=== PATIENT | female | born 1970 | race Caucasian/White ===

== ENCOUNTER 2019-11-08 08:27 | Outpatient (CLI) | payer BC, SELFPAY ==
--- NOTE | ~2019-11-08 | MM_ITS ---
EXAMINATION: MM screening [facility] BI w anayeli HISTORY: Screening TECHNIQUE: Craniocaudal and mediolateral oblique 3-D tomosynthesis images were obtained and synthetic 2-D images were generated. CAD analysis was submitted and interpreted. COMPARISON: Comparison to multiple prior studies sequentially, with oldest reviewed study dated 02/15. BREAST PARENCHYMAL COMPOSITION: The breasts are heterogeneously dense, which may obscure small masses . FINDINGS: There is a new focal asymmetry in the central aspect of the right breast, middle third. The left breast is stable without evidence for malignancy. IMPRESSION: 1. New focal right breast asymmetry. 2. Additional mammographic views and possible breast ultrasound are recommended. BI-RADS Category 0: Incomplete: Needs additional imaging evaluation. Reviewed, dictated and finalized at location A. IMPRESSION: 1. New focal right breast asymmetry. 2. Additional mammographic views and possible breast ultrasound are recommended . BI-RADS Category 0: Incomplete: Needs additional imaging evaluation.
== END 2019-11-08 08:28 | disposition home or self-care (01) ==
LOC: CHSIMG 08:31
PROVIDERS: PCP Internal Medicine; Visit Provider Internal Medicine
DX: Z12.31 Encounter for screening mammogram for malignant neoplasm of breast (principal)
CPT/HCPCS: 77063; 77067

== ENCOUNTER 2019-11-12 08:51 | Outpatient (CLI) | payer BC, SELFPAY ==
--- NOTE | ~2019-11-12 | MMUS_ITS ---
EXAMINATION: MM diagnostic [facility] RT w anayeli, US breast RT complete HISTORY: New focal right breast asymmetry reported in central right breast on 11/08/2019 screening álvaro mogram TECHNIQUE: Additional 3-D tomosynthesis images of the right breast were performed and synthetic 2-D i mages were generated. CAD analysis was submitted and interpreted. High resolution complete right [facility] [facility] ultrasound was performed. COMPARISON: 11/04/2019 bilateral digital screening mammogram BREAST PARENCHYMAL COMPOSITION: The breasts are heterogeneously dense, which may obscure small masses . FINDINGS: MAMMOGRAPHIC FINDINGS: No suspicious mass or architectural distortion, malignant calcification, skin thickening or retractio n is evident. The suggested right breast asymmetry on screening CC view of 11/08/2019 is not confirmed on these supp lemental views. The heterogeneously dense stroma however may obscure underlying masses. Ultrasound examination there fore was performed. ULTRASOUND: 12:00 5 cm from nipple: 4.8 mm cyst 6:00 2 cm from nipple: 2.9 x 4.6 x 6.2 mm circumscribed hypoechoic solid lesion without suspicious sh adowing or internal vascularity, consistent with benign process. 10:00 9 cm from nipple: 6.3 x 17.5 mm circumscribed hypoechoic mass with fatty hilus, likely a lymph node; no suspicious shadowing No suspicious mass or shadowing is detected. IMPRESSION: 1. No mammographic or sonographic evidence of malignancy 2. Routine annual mammographic screening is recommended. BI-RADS Category 2: Benign finding(s). Reviewed, dictated and finalized at location A. IMPRESSION: 1. No mammographic or sonographic evidence of malignancy 2. Routine annual mammographic screening is recommended. BI-RADS Category 2: Benign finding(s).
== END 2019-11-12 08:52 | disposition home or self-care (01) ==
PROVIDERS: PCP Internal Medicine; Visit Provider Internal Medicine
DX: R92.8 Other abnormal and inconclusive findings on diagnostic imaging of breast (principal)
CPT/HCPCS: 76641; 77061; 77065; G0279

== ENCOUNTER 2020-09-30 09:35 | Outpatient (CLI) | payer BC, SELFPAY ==
--- NOTE | ~2020-09-30 | US_ITS ---
EXAMINATION: US pelvic complete w TV DATE: 09/30/2020 13:06 INDICATION: Hypertrophy of the uterus Comparison:No prior studies for comparison. TECHNIQUE: Multiple transabdominal and endovaginal sonographic images of the pelvis performed. FINDINGS: The uterus measures 12.3 x 7.8 x 4.6 cm. The endometrial complex measures 2.4 cm. Endometri um is diffusely heterogeneous. There is uterine fibroid measuring 6.2 x 1.7 x 4.6 cm. The right ovary measures 2.8 x 3.7 x 2.7 cm and the left ovary measures 2 x 1.3 x 1 cm. There are sm all follicles in each ovary. Normal doppler signal in both ovaries. There is no free fluid in the pelvis. There are no abnormal masses seen on either side. IMPRESSION: 1. Enlarged uterus containing 6.2 cm uterine fibroid. 2: Significantly thickened heterogeneous endometrium measuring 2.4 cm. Reviewed, dictated and finalized at location A.
== END 2020-09-30 09:36 | disposition home or self-care (01) ==
PROVIDERS: PCP Internal Medicine; Visit Provider Obstetrics & Gynecology
DX: N85.2 Hypertrophy of uterus (principal)
CPT/HCPCS: 76830; 76856

== ENCOUNTER → 2021-01-30 00:29 | Outpatient (CLI) | payer BC, SELFPAY ==
[2021-01-30 17:04] LABS: SARS-CoV-2 RNA PCR Negative
== END ==
PROVIDERS: PCP Internal Medicine; Visit Provider Internal Medicine Gastroenterology
DX: Z01.812 Encounter for preprocedural laboratory examination (principal); Z20.822 Contact with and (suspected) exposure to COVID-19
CPT/HCPCS: C9803; U0003; U0005

== ENCOUNTER 2021-02-03 02:37 | Day surgery (SDC) | payer BC, SELFPAY ==
[2021-01-15 13:52] VITALS: BMI 36.6
--- NOTE | 2021-02-02 09:36 | WPDANESEPPF ---
Anes - Initial Pre Proc Eval Procedure: Operation Date: 02/03/21 08:00 Proposed Procedures p Esophagogastroduodenoscopy & Screening Colonoscopy - Ronald Craft MD Date/Time: 02/02/21 09:36 Surgeon: Ronald Craft MD Pre Op Diagnosis: epigastric pain, neoplasm screening Patient Data Age: 50 Gender: F Height: 1.65 m Weight: 100 kg Allergies Allergy/AdvReac Type Severity Reaction Status Date / Time No Known Allergies Allergy Unverified 01/15/21 13:51 Home Medications Medication Instructions Recorded Confirmed Type buspirone 30 mg tablet 30 mg PO BID 01/05/21 01/15/21 History levothyroxine 175 mcg capsule 175 mcg PO DAILY 01/05/21 01/15/21 History Patient hx anesthesia problems: none Family hx anesthesia problems: none Results Review: All pre-operative results and documents have been reviewed as part of the pre-operative evaluation. PMFSH Past Medical History Medical History (Updated 02/02/21 @ 15:25 by Ronald Craft MD) Depression GERD (gastroesophageal reflux disease) Hypothyroidism Surgical History Surgical History (Updated 02/02/21 @ 09:36 by Rosalio Li DO) History of cholecystectomy Social History Social History Alcohol intake: current Alcohol use details: Has been 3 months since last drink Living arrangements: with family Spiritual care concerns: No Anes - Eval Final PreProcedure Day of Procedure 02/02/21 09:36 Patient weight: obese Heart: regular rate and rhythm Lungs: clear to auscultation and normal air movement Airway: Mallampati scale class II Neurological: alert and oriented Last oral intake: >/= 8 hours ASA classification: II Emergent: no Anesthetic plan: proceed Anesthesia type and monitoring: general GIVS and standard monitoring Results Review: All pre-operative results and documents have been reviewed as part of the pre-operative evaluation. Informed Consent: The patient's anesthetic plan and its attendant risks and benefits were discussed with the patient/family/POA. Questions were solicited and answers provided to the satisfaction of the patient/family/POA.
--- NOTE | 2021-02-02 15:24 | PM.HPGS ---
History of Present Illness History of Present Illness Consent: Risks, benefits, and alternatives have been discussed and questions answered. Patient agrees to proceed with procedure. Chief complaint: epigastric pain, neoplasm screening Narrative: Jeanette Feliciano is a 50 year old female who has been having severe epigastric and subxiphoid pain. Often it is worse after eating, particularly when she eats beef. She had tried pantoprazole but had not had a great deal of relief with that. Her gallbladder has been removed. She is also here for colon cancer screening Review of Systems Review of Systems: All systems reviewed & are unremarkable except as noted in HPI and below PMFSH Past Medical History Medical History Depression GERD (gastroesophageal reflux disease) Hypothyroidism Surgical History Surgical History History of cholecystectomy Social History Social History Alcohol intake: current Alcohol use details: Has been 3 months since last drink Living arrangements: with family Spiritual care concerns: No Meds Home Medications and Allergies Home Medications Medication Instructions Recorded Confirmed Type buspirone 30 mg tablet 30 mg PO BID 01/05/21 01/15/21 History levothyroxine 175 mcg capsule 175 mcg PO DAILY 01/05/21 01/15/21 History Allergies Allergy/AdvReac Type Severity Reaction Status Date / Time No Known Allergies Allergy Unverified 01/15/21 13:51 Exam Resp: Auscultation: clear to auscultation bilaterally Cardio: Rate: regular rate Rhythm: regular rhythm GI: GI Palp: Yes Soft to palpation and No Tenderness to palpation present (GI) Assessment and Plan Assessment and plan (1) Epigastric pain: Code(s): R10.13 - Epigastric pain Status: Acute Assessment and Plan: EGD with possible biopsy or dilatation or cautery. (2) Encounter for screening colonoscopy: Code(s): Z12.11 - Encounter for screening for malignant neoplasm of colon Status: Acute Assessment and Plan: Colonoscopy with possible biopsy or polypectomy or cautery or injection of substances.
[2021-02-03 06:48] VITALS: BP 128/73; PULSE 82; RESP 18; TEMP 36.5; O2SAT 100
[2021-02-03] MEDS: LACTATED RINGERS 1,000 ML 150 ML IV CONT (07:00)
--- NOTE | 2021-02-03 08:26 | SUR.OPER ---
EGD START 801, END 806 COLONOSCOPY START 812, END 822
[2021-02-03 08:27] VITALS: BP 108/69; PULSE 67; RESP 21; O2SAT 98
[2021-02-03 08:37] VITALS: BP 125/74; PULSE 58; RESP 21; O2SAT 100
[2021-02-03 08:47] VITALS: BP 141/91; PULSE 83; RESP 17; O2SAT 100
== END 2021-02-03 08:59 | disposition home or self-care (01) ==
PROVIDERS: PCP Internal Medicine; Visit Provider Internal Medicine Gastroenterology
PROC: 0DJ08ZZ Inspection of Upper Intestinal Tract, Via Natural or Artificial Opening Endoscopic (ICD-10-PCS; CPT 43235; principal; 2021-02-03 08:00)
DX: Z12.11 Encounter for screening for malignant neoplasm of colon (principal); K21.9 Gastro-esophageal reflux disease without esophagitis; E03.9 Hypothyroidism, unspecified; F32.9 Major depressive disorder, single episode, unspecified; E66.9 Obesity, unspecified; Z68.36 Body mass index [BMI] 36.0-36.9, adult
CPT/HCPCS: 45378; 43239; 87081; 88305; J2704; J7120

== ENCOUNTER 2021-04-07 08:51 | Outpatient (CLI) | payer BC, SELFPAY ==
--- NOTE | ~2021-04-07 | MM_ITS ---
EXAMINATION: MM screening [facility] BI w anayeli HISTORY: Screening mammogram TECHNIQUE: Craniocaudal and mediolateral oblique 3-D tomosynthesis images were obtained and synthetic 2-D images were generated. CAD analysis was submitted and interpreted. COMPARISON: 11/12/2019, 11/08/2019, 01/26/2017 BREAST PARENCHYMAL COMPOSITION: The breasts are heterogeneously dense, which may obscure small masses . FINDINGS: There is no evidence of suspicious mass, calcification, or architectural distortion to sugg est malignancy in either breast. There has been no suspicious interval change. IMPRESSION: 1. No mammographic evidence of malignancy. 2. Recommend routine screening mammography in one year. BI-RADS Category 1: Negative Reviewed, dictated and finalized at location A. 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
== END 2021-04-07 08:52 | disposition home or self-care (01) ==
LOC: CHSIMG 08:52
PROVIDERS: PCP Internal Medicine; Visit Provider Internal Medicine
DX: Z12.31 Encounter for screening mammogram for malignant neoplasm of breast (principal)
CPT/HCPCS: 77063; 77067

== ENCOUNTER 2021-04-22 09:58 | Outpatient (CLI) | payer BC, SELFPAY ==
[2021-04-22 11:24] LABS: SARS-CoV-2 Ag Positive (Negative)
== END 2021-04-22 09:59 | disposition home or self-care (01) ==
LOC: CHSLAB 09:59
PROVIDERS: PCP Internal Medicine; Visit Provider Internal Medicine
DX: U07.1 COVID-19 (principal); J06.9 Acute upper respiratory infection, unspecified
CPT/HCPCS: 87426; C9803

== ENCOUNTER 2021-08-14 10:38 | Outpatient (CLI) | payer BC, SELFPAY ==
--- NOTE | ~2021-08-14 | MR_ITS ---
EXAMINATION: MR lumbar spine wo con DATE: 08/14/2021 11:41 INDICATION: LEFT RADICULAPTHY WITH NEUROLOGIC DEFICIT . TECHNIQUE: Magnetic resonance imaging (MRI) of the lumbar spine was performed without intravenous con trast. Sequences included sagittal T2-weighted FSE, sagittal T2-weighted FS FSE, sagittal T1-weighted FSE, and axial T2-weighted FSE. COMPARISON: 03/07/2017 FINDINGS: The last fully formed and hydrated disc is designated L5-S1. The marrow signal is benign an d homogenous. Conus terminates at T12. Multilevel disc space narrowing and disc dehydration. The foll owing disc levels are specifically discussed: T11-T12: The disc does not extend beyond the endplate margin. There is no facet joint osteoarthritis. There is no neural foraminal stenosis. There is no central canal stenosis. T12-L1: Mild diffuse bulge. There is no facet joint osteoarthritis. There is no neural foraminal sten osis. There is no central canal stenosis. L1-L2: Mild diffuse bulge. There is mild facet joint osteoarthritis. There is no neural foraminal fermín nosis. There is no central canal stenosis. L2-L3: Mild diffuse bulge. There is moderate facet joint osteoarthritis. There is no neural foraminal stenosis. There is no central canal stenosis. L3-L4: Moderate diffuse bulge. Small annular rent in the posterior disc. There is moderate facet join t osteoarthritis. There is no neural foraminal stenosis. There is no central canal stenosis. L4-L5: Moderate diffuse bulge. There is moderate facet joint osteoarthritis. There is mild bilateral inferior neural foraminal stenosis. There is no central canal stenosis. L5-S1: 4 mm left paracentral protrusion superimposed on a moderate diffuse bulge appears to displace the traversing left S1 and S2 nerve roots. There is moderate facet joint osteoarthritis. There is no neural foraminal stenosis. There is no central canal stenosis. IMPRESSION: 1. Left paracentral disc protrusion at L5-S1 displaces the left S1 and S2 nerve roots. 2. Annular rent in the L3-4 disc. 3. Mild inferior lateral neural foraminal narrowing at L4-5. 4. Multilevel facet arthropathy. Reviewed, dictated and finalized at location K.
== END 2021-08-14 10:39 | disposition home or self-care (01) ==
LOC: CHSIMG 10:39
PROVIDERS: PCP Internal Medicine; Visit Provider Internal Medicine
DX: M54.17 Radiculopathy, lumbosacral region (principal)
CPT/HCPCS: 72148

== ENCOUNTER 2021-08-22 18:44 | Observation (INO) | payer BC, SELFPAY ==
--- NOTE | ~2021-08-22 | CT_ITS ---
EXAMINATION: CT lumbar spine wo con DATE: 08/23/2021 08:22 INDICATION: Low back pain x6 weeks. Radiating into the left lower extremity. TECHNIQUE: Computed tomography (CT) of the thoracic spine was performed without intravenous contrast. Automated exposure control and iterative reconstruction technique were employed. The dose-length pro duct was 975.66 mGy-cm. COMPARISON: MRI lumbar spine 08/14/2021 FINDINGS: 5 nonrib-bearing lumbar-type vertebral bodies. Pedicles intact. Normal vertebral body align ment. Vertebral body heights preserved, noting physiologic wedging at the thoracolumbar junction. Min imal multilevel marginal osteophytosis. Mild disc space narrowing at L3-4, otherwise the spaces are m aintained. Multilevel mild facet sclerosis. Moderate canal stenosis at L3-4 and L4-5 secondary to dis c bulge and ligamentum flavum hypertrophy. Left paracentral L5-S1 disc protrusion. Normal posterior e lements. IMPRESSION: 1. L5-S1 disc protrusion. 2. Multilevel mild degenerative disc disease. 3. Multilevel facet arthropathy. 4. No acute fracture or traumatic malalignment in the lumbar spine. Reviewed, dictated and finalized at location K.
[2021-08-22 19:00] VITALS: BP 139/109; PULSE 100; RESP 18; TEMP 36.6; O2SAT 98
--- NOTE | 2021-08-22 19:24 | ED.GENADULT ---
HPI - General Adult General Chief complaint: Extremity Problem,Nontraumatic Stated complaint: pinched nerve Source: patient and family Mode of arrival: ambulatory Limitations: no limitations History of Present Illness HPI narrative: Jeanette is a 51F with a pMH of GERD and hypothyroidism as well as radiculopathy that was brought to the ED for worsening left buttock pain. She has had it for some time and had an MRI that showed compression of the S1 and S2 nerve roots. Today when she was stretching it became much worse. She has terrible ache in her left buttock that she cannot stand and numbness down the back of her left leg. It is so bad that she is lying in the position and this is the only thing that gives relief. There is no loss of bowel or bladder control and there is no paralysis. There has been no trauma. Related Data Home Medications Medication Instructions Recorded Confirmed levothyroxine 175 mcg capsule 175 mcg PO DAILY 01/05/21 08/22/21 meloxicam 15 mg tablet 15 mg PO DAILY 08/22/21 08/22/21 Allergies Allergy/AdvReac Type Severity Reaction Status Date / Time No Known Allergies Allergy Unverified 01/15/21 13:51 Review of Systems Constitutional: Constitutional: Reports no additional constitutional complaints Eyes: Eyes: Reports no additional eye complaints ENT: Reports system reviewed and no additional complaints, except as documented Cardiovascular: Cardiovascular: Reports no additional cardiovascular complaints Respiratory: Respiratory: Reports no additional respiratory complaints Gastrointestinal: Gastrointestinal: Reports no additional gastrointestinal complaints Genitourinary: Genitourinary: Reports no additional female genitourinary complaints Musculoskeletal: Musculoskeletal: Reports as per HPI Integumentary/Breasts: Skin/Breast: Reports system reviewed and no additional complaints, except as docu Neurologic: Reports as per HPI Psychiatric: Psychiatric: Reports no additional psychiatric complaints Endocrine: Endocrine: Reports no additional endocrine complaints Hematologic/Lymphatic: Hematologic/Lymphatic: Reports no additional hematologic/lymphatic complaints Allergic/Immunologic: Allergic/Immunologic: Reports no additional allergic/immunologic complaints [facility] Past Medical History Medical History (Updated 08/23/21 @ 10:08 by OLEGARIO Mejia) Depression GERD (gastroesophageal reflux disease) Hypothyroidism Surgical History Surgical History History of cholecystectomy Family History Family History (Updated 08/23/21 @ 00:14 by Nancy Salas RN) Mother Diabetes mellitus Sibling Diabetes mellitus Father Malignant neoplasm of prostate Sibling Heart disease Throat cancer Social History Social History Smoking status: Never smoker Alcohol intake: former Alcohol use details: Has been 3 months since last drink Substance use: current Substance use type: marijuana Spiritual care concerns: No Exam Const: General: alert Orientation/consciousness: patient oriented x3 Limitations: No altered mental status Other: In mild distress lying in the position on the bed HENMT: Head: normal to inspection Other: atraumatic Eyes: Conjunctivae: conjunctivae normal Pupils: Equal, round and reactive pupils present Neck: Neck: normal visual inspection Chest: Chest palpation & inspection: normal inspection of the chest Resp: Effort & Inspection: normal respiratory effort and not tachypneic Cardio: Rate: regular rate : General: Yes no CVA tenderness Back/Spine/Pelvis: Other: No midline tenderness Skin: General skin exam: normal color Neuro: General: patient oriented x3 and moves all extremities Other: 5/5 strength throughout the lower extremities. Sensation intact in all dermatomes tested in the lower extremities. 1/4 p
[2021-08-22] MEDS: MORPHINE SULFATE (*CRX) 4 MG/ML INJ IV PUSH ×2 (19:38→20:49)
[2021-08-22] MEDS: GABAPENTIN 300 MG CAPSULE PO (19:45)
[2021-08-22] MEDS: BACLOFEN 10 MG TABLET PO (21:22)
[2021-08-22] MEDS: KETOROLAC 15 MG/ML VIAL (*BKC) IV PUSH (21:22)
[2021-08-22 22:09] VITALS: BP 142/63; PULSE 76; RESP 20; O2SAT 100
--- NOTE | 2021-08-22 22:10 | PC.NURSE ---
ERP Dr Gale spoke to pt., she remains in severe pain and unable to sit or lie down due to spasms and pain from her Left buttock that radiates down her leg. Pt is unable to stand or care for self and will be admitted for 23 hr obs.
[2021-08-22 22:28] VITALS: BP 146/76; PULSE 75; RESP 20; TEMP 36.4; O2SAT 100
[2021-08-22 22:40] LABS: Basophils Absolute Auto 0.03 K/mm3 (0.00-0.10); Basophils Percent Auto 0.5 % (0.0-1.0); Eosinophils Absolute Auto 0.06 K/mm3 (0.02-0.50); Eosinophils Percent Auto 0.9 % (1.0-6.0); Hematocrit 36.2 % (35.0-49.0); Hemoglobin 12.1 g/dL (12.0-15.0); Immature Granulocyte Absolute 0.02 K/mm3 (0.00-0.00); Immature Granulocyte Percent A 0.3 % (0.0-0.0); Lymphocytes Absolute Auto 0.88 K/mm3 (1.10-4.50); Lymphocytes Percent Auto 13.6 % (18.0-42.0); Mean Corpuscular HGB Conc 33.4 g/dL (32.0-36.0); Mean Corpuscular Hemoglobin 30.4 pg (27.0-31.0); Mean Platelet Volume 9.8 fl (9.2-11.8); Monocytes Absolute Auto 0.35 K/mm3 (0.10-0.90); Monocytes Percent Auto 5.4 % (2.0-11.0); Neutrophils Absolute Auto 5.1 K/mm3 (1.7-7.2); Neutrophils Percent Auto 79.3 % (50.0-70.0); Platelet Count Result 269 K/mm3 (150-420); Red Blood Count 3.98 M/mm3 (4.20-5.40); Red Cell Distribution Width 13.2 % (11.6-14.4); White Blood Count 6.5 K/mm3 (4.8-10.8)
[2021-08-22 22:57] LABS: Alanine Aminotransferase 32 U/L (14-59); Albumin Level 3.4 g/dL (3.4-5.0); Alkaline Phosphatase 60 U/L (46-116); Anion Gap 6 mmol/L (8-16); Aspartate Amino Transferase 22 U/L (15-37); Bilirubin,Total 0.2 mg/dL (0.00-1.00); Blood Urea Nitrogen 14 mg/dL (7-18); Calcium 8.7 mg/dL (8.5-10.1); Carbon Dioxide 27 mmol/L (21-32); Chloride 106 mmol/L (98-108); Estimated CRCL calculation 88 ml/min; Estimated Glomerular Filt Rate > 60; Glucose 119 mg/dL (70-99); Osmolality Calculated 289 mOsm/kg (285-295); Potassium 3.7 mmol/L (3.5-5.1); Sodium 139 mmol/L (136-145); Total Protein 6.7 g/dL (6.4-8.2)
[2021-08-22 22:59] LABS: Magnesium 1.9 mg/dL (1.8-2.4)
[2021-08-22 23:15] VITALS: BP 131/91; PULSE 68; RESP 22; TEMP 37; O2SAT 99
--- NOTE | 2021-08-22 23:15 | ADMGEN ---
This patient, Jeanette Feliciano, was admitted to 2nd Floor Room 209-1. Patient oriented to hospital policies and general routines including ID bracelet, bed and alarms, visiting hours, pain management, procedures, bathroom and other care routines, personal items, smoking policy, room service/diet, and visiting hours. Information on how to activate the Rapid Response Team has been discussed. Patient are encouraged to report perceived risks to care and to ask questions if they do not understand what they are told or what they should do. Patient stood and transferred independently from w/c to bed and immediately got onto her hands and knees, saying that's the only way she can get comfortable.
[2021-08-22 23:33] LABS: CRP < 0.5 mg/dL (0.0-0.9)
[2021-08-22] MEDS: HYDROmorphone HCL INJ (*CRX) 2 MG/ML VIAL 0.5 MG IV PUSH (23:34)
[2021-08-22] MEDS: traZODone HCL 50 MG TABLET PO (23:37)
--- NOTE | 2021-08-23 | PC.NURSE ---
Patient resting quietly, now positioned on her knees with her chest/face/arms on the bed. Respirations even and unlabored. No distress noted. Call light in reach.
[2021-08-23 00:11] VITALS: BMI 38.6
--- NOTE | 2021-08-23 00:38 | PC.NURSE ---
Patient appears to be sleeping with respirations even and unlabored. Patient still positioned on her knees with her chest/face/arms on the bed. No distress noted. Call light in reach.
--- NOTE | 2021-08-23 02:46 | PC.NURSE ---
Patient appears to be sleeping by the rise and fall of her chest. Respirations even and unlabored. Patient is now lying on her left side. No distress noted. Call light in reach.
--- NOTE | 2021-08-23 04:55 | PC.NURSE ---
Patient barely awakened when labs were drawn per tech and then turned onto her right side. Resp even and unlabored. No distress noted. Call light in reach.
[2021-08-23 05:03] LABS: Hematocrit 36.6 % (35.0-49.0); Hemoglobin 12.1 g/dL (12.0-15.0); Mean Corpuscular HGB Conc 33.1 g/dL (32.0-36.0); Mean Corpuscular Hemoglobin 30.3 pg (27.0-31.0); Mean Corpuscular Volume 91.7 fL (78.0-102.0); Mean Platelet Volume 9.8 fl (9.2-11.8); Platelet Count Result 272 K/mm3 (150-420); Red Blood Count 3.99 M/mm3 (4.20-5.40); Red Cell Distribution Width 13.2 % (11.6-14.4)
[2021-08-23] MEDS: LEVOTHYROXINE SODIUM 75 MCG TABLET PO (05:45)
[2021-08-23] MEDS: LEVOTHYROXINE SODIUM 100 MCG TABLET PO (05:45)
--- NOTE | 2021-08-23 05:48 | PC.NURSE ---
Patient awakened to name and took Levothyroxine without difficulty. No distress noted. Call light in reach.
--- NOTE | 2021-08-23 06:42 | PC.NURSE ---
Patient appears to be sleeping by the rise and fall of her chest. Respirations even and unlabored. Patient lying flat on her back. No distress noted. Call light in reach.
[2021-08-23 07:24] VITALS: BP 144/72; PULSE 68; RESP 16; TEMP 37.1; O2SAT 100
[2021-08-23] MEDS: HYDROmorphone HCL INJ (*CRX) 2 MG/ML VIAL 0.5 MG IV PUSH (07:48)
[2021-08-23] MEDS: CYCLOBENZAPRINE HCL 10 MG TABLET PO (07:48)
[2021-08-23] MEDS: GABAPENTIN 400 MG CAPSULE PO ×2 (08:43→13:02)
[2021-08-23] MEDS: ENOXAPARIN 40 MG/0.4 ML SYRINGE SUB-Q (08:43)
[2021-08-23] MEDS: MELOXICAM 7.5 MG TABLET 15 MG PO (08:43)
[2021-08-23] MEDS: methylPREDNISolone SOD SUCC 125 MG VIAL IV PUSH (09:23)
--- NOTE | 2021-08-23 09:36 | PM.SD2 ---
Same Day Admit/Disch: HPI History of Present Illness Chief complaint: LUMBAR RADICULOPATHY Narrative: Jeanette Feliciano is a 51 year old female that presented to urgent care with complaints of back and buttocks pain with numbness to her left leg. Patient has a past medical history of depression, GERD and hypothyroidism. Patient recent MRI indicates that she has compression of the S1 and S2 nerve roots. Patient notes that she was at home stretching as the doctor had instructed when she started experiencing severe pain that was relieved by putting herself in a position. She also notes that she had a shooting pain down her left leg and numbness in that left leg. Patient did note that she got a steroid shot while she was at her primary care physician and that she getting a referral to a back surgeon from her primary care physician. I did call her primary care physician to inform him of her admission. Patient notes that her condition has improved since admission. She did receive pain medication in the ED. She was prescribed Toradol, gabapentin, Flexeril, Solu-Medrol Dilaudid and ordered PT OT eval. Patient will discharge home today she will discharged with Medrol pack, Flexeril, [place], and instructed to follow-up with her primary care physician for referral to back surgeon or pain management. Patient does have a concern about ambulating, we have consulted PT OT. Labs and vitals were normal for this patient she will go home with pain medication to control her medication and follow-up with her back surgeon. [facility] Past Medical History Medical History (Updated 08/23/21 @ 10:08 by OLEGARIO Mejia) Depression GERD (gastroesophageal reflux disease) Hypothyroidism Surgical History Surgical History History of cholecystectomy Family History Family History (Updated 08/23/21 @ 00:14 by Nancy Salas RN) Mother Diabetes mellitus Sibling Diabetes mellitus Father Malignant neoplasm of prostate Sibling Heart disease Throat cancer Social History Social History Smoking status: Never smoker Alcohol intake: former Alcohol use details: Has been 3 months since last drink Substance use: current Substance use type: marijuana Spiritual care concerns: No Same Day Admit/Disch: Med Pre-admit Medications Home Medications Medication Instructions Recorded Confirmed Type levothyroxine 175 mcg capsule 175 mcg PO DAILY 01/05/21 08/22/21 History cyclobenzaprine 10 mg PO BID 08/22/21 08/22/21 History meloxicam 15 mg PO DAILY 08/22/21 08/22/21 History hydrocodone-acetaminophen 1 tablet PO Q4H PRN #15 tablet 08/23/21 Rx Exam Narrative: GENERAL: This is a well-nourished, well-developed patient, in no apparent distress. HEAD: normocephalic, atraumatic. EYES: PERRL. Sclera clear/white. Vision is grossly intact. EARS: External ears normal, auditory canals clear and without drainage, TMs normal without perforation. Hearing grossly intact. NOSE: External nose normal with no obvious nasal discharge, nares without redness, no rhinorrhea. THROAT: Mucous membranes moist, posterior pharynx clear. NECK: Neck supple, non-tender without lymphadenopathy, masses or thyromegaly. CARDIOVASCULAR: Regular rate and rhythm without murmurs, gallops, or rubs. RESPIRATORY: Clear to auscultation. Breath sounds equal bilaterally. No wheezes, rales, or rhonchi. GASTROINTESTINAL: Abdomen soft, non-tender, nondistended. Bowel sounds are active. No hepato-splenomegaly, or palpable masses. No guarding. SKIN: warm, intact with no suspicious lesions or rash, good texture and turgor. NEURO: awake, alert, and oriented to person, place and time. There were no obvious focal neurologic abnormalities. Steady gait EXTREMITIES: Normal range of motion. No edema. No calf tenderness. Negative Homans sign bilaterally. BACK: Nontender without deformity o
--- NOTE | 2021-08-23 14:45 | PCDIET ---
Patient discharge instructions given to patient. Patient voiced understanding. Patient left floor in w/c accompanied by nurse. Personal belongings sent with patient. Patient left property in private vehicle.
--- NOTE | 2021-08-26 13:07 | PC.NURSE ---
Pt states she received and understood her discharge instructions. Pt also states they were fantastic .
== END 2021-08-23 14:45 | disposition home or self-care (01) ==
LOC: CHSED 22:26 → CHS2ND 22:27
PROVIDERS: Nurse Practitioner; Admitting Provider Internal Medicine; Emergency Provider Family Medicine; PCP Internal Medicine; Visit Provider Internal Medicine
DX: M51.17 Intervertebral disc disorders with radiculopathy, lumbosacral region (principal); K21.9 Gastro-esophageal reflux disease without esophagitis; E03.9 Hypothyroidism, unspecified; F32.A Depression, unspecified
CPT/HCPCS: 36415; 72131; 80053; 83735; 85025; 85027; 86140; 96372; 96374; 96375; 96376; 97161; 97165; 99285; A9270; G0378; J1170; J1650; J1885; J2270; J2930

== ENCOUNTER 2022-09-28 17:34 | Outpatient (CLI) | payer BC, SELFPAY ==
--- NOTE | ~2022-09-28 | MM_ITS ---
EXAMINATION: MM screening [facility] BI w anayeli HISTORY: Screening mammogram TECHNIQUE: Craniocaudal and mediolateral oblique 3-D tomosynthesis images were obtained and synthetic 2-D images were generated. CAD analysis was submitted and interpreted. COMPARISON: 04/07/2021 bilateral screening mammogram 11/12/2019 diagnostic right mammogram and complete right breast ultrasound examination 11/04/2019, 01/26/2017 bilateral screening mammogram examinations BREAST PARENCHYMAL COMPOSITION: The breasts are heterogeneously dense, which may obscure small masses . FINDINGS: There is no evidence of suspicious mass, calcification, or architectural distortion to sugg est malignancy in either breast. There has been no suspicious interval change. IMPRESSION: 1. No mammographic evidence of malignancy. 2. Recommend routine screening mammography in one year. BI-RADS Category 1: Negative Reviewed, dictated and finalized at location A.
== END 2022-09-28 17:35 | disposition home or self-care (01) ==
LOC: CHSIMG 17:35
PROVIDERS: Visit Provider Obstetrics & Gynecology
DX: Z12.31 Encounter for screening mammogram for malignant neoplasm of breast (principal)
CPT/HCPCS: 77063; 77067

== ENCOUNTER 2024-06-05 11:51 | Outpatient (CLI) | payer BC, SELFPAY ==
--- NOTE | ~2024-06-05 | MM_ITS ---
EXAMINATION: MM screening álvaro BI w anayeli HISTORY: Screening TECHNIQUE: Craniocaudal and mediolateral oblique 3-D tomosynthesis images were obtained and synthetic 2-D images were generated. CAD analysis was submitted and interpreted. COMPARISON: Comparison to multiple prior studies sequentially, with oldest reviewed study dated 01/15. BREAST PARENCHYMAL COMPOSITION: Dense: The breasts are heterogeneously dense, which may obscure small masses FINDINGS: There is no evidence of suspicious mass, calcification, or architectural distortion to sugg est malignancy in either breast. There has been no suspicious interval change. IMPRESSION: 1. No mammographic evidence of malignancy. 2. Recommend routine screening mammography in one year. BI-RADS Category 1: Negative Reviewed, dictated and finalized at location B. 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
--- OUTSIDE RECORDS SUMMARY | 2024-06-05 11:55 | XMS_ITS | Clinical Summary ---
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 Role Phone Unavailable Primary Care Provider Unavailabl e Social History Tobacco Use Types Packs/Day Years Used Date Smoking Tobacco: Former Comments Unknown Sex and Gender Information Value Date Recorded Sex Assigned at Not on file Legal Sex Female 6:59 PM CDT Gender Identity Not on file Sexual Orientation Not on file Last Filed Vital Signs Vital Sign Reading Time Taken Comments Blood Pressure 110/84 05/02/2014 2:36 PM DEPUTY ATTORNEY GENERAL Pulse 64 05/02/2014 2:36 PM DEPUTY ATTORNEY GENERAL Temperature - - Respiratory Rate 18 05/02/2014 2:36 PM DEPUTY ATTORNEY GENERAL Oxygen Saturation - - Inhaled Oxygen Concentration - - Weight 105.2 kg (232 lb) 05/02/2014 2:36 PM DEPUTY ATTORNEY GENERAL Height 165.1 cm (5' 5 ) 05/02/2014 2:36 PM DEPUTY ATTORNEY GENERAL Body Mass Index 38.61 05/02/2014 2:36 PM DEPUTY ATTORNEY GENERAL Plan of Treatment Health Maintenance Due Date Last Done Comments Cervical Cancer Screening Pa p Smear (Age 30 to 64) Every 3 Years 1970 Colorectal Cancer Screening Colonoscopy (10 Years) 1970 Annual Physical 1973 Hepatitis C 1988 DTaP, Tdap and Td Vaccines ( 1 - Tdap) 1989 Hepatitis B Vaccines (1 of 3 - 19+ 3-dose series) 1989 Cervical Cancer Screening Pa p with HPV Testing (Age 30 to 64) Every 5 Years 2000 Cervical Cancer Screening with HPV 2000 Mammogram Screening 2010 Zoster Vaccines (1 of 2) 2020 COVID-19 Vaccine (2023-2 5 season) 2023 Influenza Adult (#1) 2024 Meningococcal B Vaccine Aged Out No l onger eligible based on patient's age to complete this topic Meningococcal Vaccine Aged Out No malinda silvana eligible based on patient's age to complete this topic Pneumococcal Vaccine: Pediat rics (0 to 5 Years) and At-Risk Patients (6 to 64 Years) Aged Out No longer eligible b ased on patient's age to complete this topic RSV Immunizations Under 20 Months Aged Out No longer eligible based on patient's age to complete this topic
== END 2024-06-05 11:52 | disposition home or self-care (01) ==
LOC: CHSIMG 11:53
PROVIDERS: PCP Internal Medicine; Visit Provider Obstetrics & Gynecology
DX: Z12.31 Encounter for screening mammogram for malignant neoplasm of breast (principal)
CPT/HCPCS: 77063; 77067

== ENCOUNTER 2024-07-04 01:15 | Day surgery (SDC) | payer BC, SELFPAY ==
[2024-06-20 09:30] VITALS: BMI 41.5
--- NOTE | 2024-06-20 09:36 | SUR.PREOP ---
Report to the Outpatient Waiting Room, entrance under the green pavilion located off [facility], at time 0900 on date 07/04/24. Planned Procedure Time:1100 Time changes happen often and if your time is changed the preop area will call you the afternoon before. - You and your visitor will be asked to self-screen and do not enter if you have any COVID symptoms. Please call surgeon if you need to reschedule. - A mask is optional within the hospital at this time. Patients may have clear liquids (water, carbonated beverages, clear teas, apple juice) until 3 hours prior to surgery with a maximum of 20 ounces. - No food from midnight until time of surgery and no smoking, or chewing tobacco (or any form of nicotine). No chewing gum, candy or mints. - Infants may have breast milk until 4 hours before surgery, formula 6 hours prior to surgery. - Children will be allowed to drink immediately following surgery.? If applicable, please bring a bottle or sippy cup to assist with drinking. Juice, water, soda, and popsicles are readily available.? For infants on formula, please bring formula the day of surgery.? Pacifiers are allowed. Take only the following medications with a SIP of water on the morning of surgery: __thyroid medication__ DO NOT STOP ANY OF YOUR OTHER PRESCRIPTION MEDICATIONS PRIOR TO SURGERY EXCEPT THE FOLLOWING Hold all vitamins and supplements for 3 days per anesthesiologist. Medications to discontinue per physician n/a Date to take last dose Please no make-up, nail syriac, hairspray, perfume, deodorant, or body powder the day of surgery.? No jewelry (including any body piercings) or valuables the day of surgery, leave them at home.? Please take a shower or bath the night before, or the morning of, surgery with an antibacterial soap.? Wear comfortable, loose fitting clothing.? Children are encouraged to wear pajamas. - Jewelry must be removed prior to entering the operating room.? Rings and piercings that are not removed may be cut off. - The hospital will not accept responsibility for valuables.? - Please leave all valuables, including medications, at home the day of surgery. If you are going home after surgery, a licensed otr company driver must drive you home.? - NO public transportation without another adult if you receive anesthesia. - We recommend that an adult stay with you for 24 hours following discharge. - We also recommend that you do not drive, make important decision, drink alcoholic beverages, or take any drugs that were not prescribed by your health care provider for at least 24 hours after your discharge time. For Pediatric surgeries, we recommend two adults accompany the child home. Follow any additional instructions given to you from your surgeon. Telephone instructions given to __patient__and asked if any additional questions and then verbalized understanding. Patient advised to call surgeon office or pre surgery nurse liaison [phone] if any additional questions.
--- NOTE | 2024-07-02 17:30 | P.HP_ITS ---
H&P: HPI History of Present Illness Date/Time: 07/02/24 17:30 54-year-old female presents for evaluation of irregular vaginal bleeding. Patient is continuing to have regular cycles but also spotting between the cycles. Ultrasound did reveal endometrial thickness of 10mm which is slightly thickened, as well as a 7cm fibroid. Presents therefore for tissue sampling due to the thickened endometrium. does have a history of 4 years ago undergoing hysteroscopy D&C with benign polypectomy performed. Chief Complaint: Irregular bleeding with endometrial hypertrophy on ultrasound. Review of Systems Review of Systems: All systems reviewed & are unremarkable except as noted in HPI and below PMFSH Past Medical History Medical History Screening mammogram, encounter for Depression Hypothyroidism GERD (gastroesophageal reflux disease) Surgical History Surgical History History of back surgery (~09/23/21) fluid removed from disc History of dilation and curettage 10/22/20 hscope d&c/polypectomy--benign History of cholecystectomy Family History Family History Mother Diabetes mellitus Hypertension Sibling Diabetes mellitus Father Malignant neoplasm of prostate Sibling Heart disease Throat cancer brother sister Acute myocardial infarction brother x 2 Social History Social History (Updated 05/14/24 @ 09:25 by AKILA Simmons) Smoking status: Never smoker Second hand tobacco smoke exposure: No Alcohol intake: former Alcohol use details: Has been 3 months since last drink Substance use: former Substance use type: marijuana Do You Feel Safe in your Home?: Yes Lack of Transportation: No Lack of Food: Never True Current Housing: I Have Housing Concerned About Future Housing: No Difficulty Paying Gas/Electric Bills: No Difficulty Paying for Meds: No Currently Unemployed: No Education: High School Diploma/GED Difficulty w/ Childcare or Family Care: No Living arrangements: with family Additional living arrangements comments: single Occupation/Education: occupation 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 Gender identity (if verbalized by the patient): Female Sexual Orientation (if Verbalized by the Patient): Straight or Heterosexual Spiritual care concerns: No Meds Home Medications and Allergies Home Medications ?Medication ?Instructions ?Recorded ?Confirmed ?Type levothyroxine 175 mcg capsule 175 mcg PO DAILY 01/05/21 06/20/24 History Allergies Allergy/AdvReac Type Severity Reaction Status Date / Time No Known Allergies Allergy Verified 06/20/24 09:54 Exam Const: General: cooperative, healthy appearing and comfortable Resp: Effort & Inspection: normal respiratory effort Auscultation: clear to auscultation bilaterally Cardio: Rate: regular rate Rhythm: regular rhythm GI: Inspection: normal to inspection Auscultation: normal bowel sounds : External Female Exam: normal external appearance Speculum Exam - Vagina: normal appearance of the vagina Speculum Exam - Cervix: normal appearance of the cervix Bimanual exam- vagina & uterus: enlarged ( Twelve 14 week size globular) Bimanual Exam- Adnexa, other: normal adnexae Assessment and Plan Assessment and plan (1) Irregular bleeding: Code(s): N92.6 - Irregular menstruation, unspecified Status: Acute (2) Abnormal vaginal bleeding with endometrial thickness less than 16 mm present on transvaginal ultrasound in premenopausal patient: Code(s): N92.4 - Excessive bleeding in the premenopausal period; R93.89 - Abnormal findings on diagnostic imaging of other specified body structures Status: Acute (3) Enlarged uterus: Code(s): N85.2 - Hypertrophy of uterus Status: Acute (4) Fibroid uterus: Code(s): D25.9 - Leiomyoma of uterus, unspecified Status: Acute Plan 1. Proceed with hysteroscopy with uterine curettings.
--- OUTSIDE RECORDS SUMMARY | 2024-07-04 01:18 | XMS_ITS | Clinical Summary ---
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 Name Role Phone Unavailable Primary Care Provider [...] Comments Blood Pressure 110/84 05/02/2014 2:36 PM INFORMATION TECHNOLOGY COORDINATOR Pulse 64 05/02/2014 2:36 PM INFORMATION TECHNOLOGY COORDINATOR Temperature - - Respiratory Rate 18 05/02/2014 2:36 PM INFORMATION TECHNOLOGY COORDINATOR Oxygen Saturation - - Inhaled Oxygen Concentration - - Weight 105.2 kg (232 lb) 05/02/2014 2:36 PM INFORMATION TECHNOLOGY COORDINATOR Height 165.1 cm (5' 5 ) 05/02/2014 2:36 PM INFORMATION TECHNOLOGY COORDINATOR Body Mass Index 38.61 05/02/2014 2:36 PM INFORMATION TECHNOLOGY COORDINATOR Plan of Treatment Health Maintenance Due Date [...]
--- NOTE | 2024-07-04 07:14 | WPDHPUPDATE1 ---
History and Physical Update Update Date/Time: 07/04/24 07:14 History and Physical has been reviewed, including an updated exam of the patient. There are NO changes in the patient's condition. Risks, benefits, and alternatives have been discussed and questions answered. Patient agrees to proceed with procedure.
[2024-07-04 08:01] VITALS: BP 141/75; PULSE 63; RESP 16; TEMP 36.6; O2SAT 98
[2024-07-04 08:02] VITALS: BMI 41.8
[2024-07-04] MEDS: ACETAMINOPHEN 500 MG TABLET 1000 MG PO (08:05)
[2024-07-04 08:06] LABS: BEDSIDEPREGUCG Negative (Negative)
[2024-07-04] MEDS: LACTATED RINGERS 1,000 ML 30 ML IV CONT (08:10)
--- NOTE | 2024-07-04 08:57 | P.PNAN_ITS ---
Anes - Initial Pre Proc Eval Procedure: Operation Date: 07/04/24 09:30 Proposed Procedures p Hysteroscopy, Dilation and Curettage - Skyler Mckeon MD Date/Time: 07/04/24 08:57 Surgeon: Skyler Mckeon MD Pre Op Diagnosis: endometrial hyperplasia Patient Data Age: 54 Gender: F Height: 1.65 m Weight: 114.2 kg Last Vital Signs Temp 36.6 C 07/04/24 08:01 Pulse 63 07/04/24 08:01 Resp 16 07/04/24 08:01 BP 141/75 H 07/04/24 08:01 Pulse Ox 98 07/04/24 08:01 Allergies Allergy/AdvReac Type Severity Reaction Status Date / Time No Known Allergies Allergy Verified 07/04/24 08:21 Home Medications ?Medication ?Instructions ?Recorded ?Confirmed ?Type levothyroxine 175 mcg capsule 175 mcg PO DAILY 01/05/21 07/04/24 History Laboratory Tests 07/04/24 07:59 POC Urine HCG, Qual Negative (Negative) Patient hx anesthesia problems: none Family hx anesthesia problems: none Results Review: All pre-operative results and documents have been reviewed as part of the pre- operative evaluation. FORMERLY [facility], [facility] Past Medical History Medical History Screening mammogram, encounter for Depression Hypothyroidism GERD (gastroesophageal reflux disease) Surgical History Surgical History History of back surgery (~09/23/21) fluid removed from disc History of dilation and curettage 10/22/20 hscope d&c/polypectomy--benign History of cholecystectomy Family History Family History Mother Diabetes mellitus Hypertension Sibling Diabetes mellitus Father Malignant neoplasm of prostate Sibling Heart disease Throat cancer brother sister Acute myocardial infarction brother x 2 Social History Social History Smoking status: Never smoker Second hand tobacco smoke exposure: No Alcohol intake: former Alcohol use details: Has been 3 months since last drink Substance use: former Substance use type: marijuana Do You Feel Safe in your Home?: Yes Lack of Transportation: No Lack of Food: Never True Current Housing: I Have Housing Concerned About Future Housing: No Difficulty Paying Gas/Electric Bills: No Difficulty Paying for Meds: No Currently Unemployed: No Education: High School Diploma/GED Difficulty w/ Childcare or Family Care: No Living arrangements: with family Additional living arrangements comments: single Occupation/Education: occupation 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 Gender identity (if verbalized by the patient): Female Sexual Orientation (if Verbalized by the Patient): Straight or Heterosexual Spiritual care concerns: No Anes - Eval Final PreProcedure Day of Procedure 07/04/24 08:57 Patient weight: morbidly obese Heart: regular rate and rhythm Lungs: clear to auscultation Airway: Mallampati scale class II Neurological: alert and oriented Last oral intake: >/= 8 hours ASA classification: III Emergent: no Anesthetic plan: proceed Anesthesia type and monitoring: general GIVS and standard monitoring Results Review: All pre-operative results and documents have been reviewed as part of the pre- operative evaluation. Informed Consent: The patient's anesthetic plan and its attendant risks and benefits were discussed with the patient/family/POA. Questions were solicited and answers provided to the satisfaction of the patient/family/POA.
[2024-07-04] MEDS: KETOROLAC 30 MG/ML VIAL (*BKC) IV PUSH (09:25)
--- NOTE | 2024-07-04 09:26 | W.PM.PROC2 ---
Procedure Note - Detailed Date of Procedure 07/04/24 Pre-op Diagnosis endometrial hyperplasia Post-op Diagnosis Same Procedure Performed Hysteroscopy with uterine curettings Surgeon Skyler Mckeon MD Anesthesia MAC Findings Proliferative appearing endometrium, no polyps or hypervascularity appreciated Description of Procedure Patient prepped draped manner his procedure. Cervix was dilated to allow the hysteroscope placed which revealed findings as above. Curettings were obtained of all 4 quadrants and sent for pathology. Was no significant bleeding and the patient was sent to recovery room in stable condition. Estimated Blood Loss 10 Drains No Packing No Pathology Yes Complications No immediate complications Condition Stable Disposition PACU [facility] Billing Surgery - Charge Forward: Surgery Billing
[2024-07-04 09:32] VITALS: BP 119/53; PULSE 61; RESP 14; O2SAT 97
[2024-07-04 09:48] VITALS: O2SAT 99
[2024-07-04 10:02] VITALS: BP 139/72; PULSE 41; RESP 16
[2024-07-04 10:18] VITALS: BP 137/81; PULSE 53; RESP 16
== END 2024-07-04 10:25 | disposition home or self-care (01) ==
PROVIDERS: PCP Internal Medicine; Visit Provider Obstetrics & Gynecology
PROC: 0U5B8ZZ Destruction of Endometrium, Via Natural or Artificial Opening Endoscopic (ICD-10-PCS; CPT 58563; principal; 2024-07-04 09:30)
DX: R93.89 Abnormal findings on diagnostic imaging of other specified body structures (principal); E03.9 Hypothyroidism, unspecified; K21.9 Gastro-esophageal reflux disease without esophagitis; F32.A Depression, unspecified; F12.90 Cannabis use, unspecified, uncomplicated; E66.01 Morbid (severe) obesity due to excess calories; Z68.41 Body mass index [BMI] 40.0-44.9, adult; Z98.890 Other specified postprocedural states; Z98.1 Arthrodesis status; Z90.49 Acquired absence of other specified parts of digestive tract; Z80.42 Family history of malignant neoplasm of prostate; Z80.1 Family history of malignant neoplasm of trachea, bronchus and lung; Z82.49 Family history of ischemic heart disease and other diseases of the circulatory system
CPT/HCPCS: 58558; 88305; A9270; J1885; J2003; J2250; J2405; J2704; J3010; J7120

== ENCOUNTER 2024-12-11 10:23 | Outpatient (CLI) | payer BC, SELFPAY ==
--- NOTE | ~2024-12-11 | XR_ITS ---
EXAMINATION: XR foot RT min 3V, 12/11/2024 10:33 CDT HISTORY: Heel pain X 1 week COMPARISON: No comparisons available. Findings: No acute fracture or malalignment. No significant degenerative changes. Soft tissues unremarkable. Impression: No acute fracture or malalignment. Reviewed, dictated and finalized at location A. Impression: No acute fracture or malalignment.
--- NOTE | ~2024-12-11 | XR_ITS ---
EXAMINATION: XR heel RT min 2V, 12/11/2024 10:33 CDT HISTORY: Heel pain X 1 week COMPARISON: No comparisons available. Findings: No acute fracture or malalignment. Large calcaneal spur. Moderate Achilles enthesopathy. Soft tissues unremarkable. Impression: No acute fracture or malalignment. Reviewed, dictated and finalized at location A. Impression: No acute fracture or malalignment.
== END 2024-12-11 10:24 | disposition home or self-care (01) ==
LOC: CHSIMG 10:26
PROVIDERS: PCP Internal Medicine; Visit Provider Internal Medicine
DX: E03.9 Hypothyroidism, unspecified (principal); R53.83 Other fatigue; M79.671 Pain in right foot
CPT/HCPCS: 73630; 73650

== ENCOUNTER 2024-12-13 12:06 | Outpatient (CLI) | payer BC, SELFPAY ==
--- NOTE | 2025-01-02 13:54 | WPDHOLTEREM ---
Holter/Event Monitor Holter/Event Monitor Date of procedure: 12/13/24 Holter/Event Procedure: Event Monitor Indications: Bradycardia Conclusion: 1. 14 days event monitor on 12/13/24. 2. Predominant rhythm is sinus rhythm. HR range 39-203 bpm; average HR 65 bpm. HR at 39 bpm was on 12/15/24 at 5:33 am. 3. There are rare premature supraventricular complexes, rare supraventricular couplets, and rare supraventricular triplets. There are 37 episodes of supraventricular tachycardia with fastest at 203 bpm and longest lasting 1 minute and 7 seconds. 4. There are rare premature ventricular complexes and rare ventricular couplets. No ventricular tachycardia. 5. No significant pauses greater than 3 seconds. 6. No symptoms available for correlation.
== END 2024-12-13 12:07 | disposition home or self-care (01) ==
LOC: CHSCARD 12:07
PROVIDERS: PCP Internal Medicine; Visit Provider Internal Medicine
DX: R00.1 Bradycardia, unspecified (principal); R42 Dizziness and giddiness; I47.10 Supraventricular tachycardia, unspecified; R00.8 Other abnormalities of heart beat
CPT/HCPCS: 93246